=== PATIENT | male | born 1975 | race Caucasian/White ===

== ENCOUNTER 2018-03-31 00:50 | Emergency (ER) | payer OTHER ==
[~2018-03-31] VITALS: Ht 182.9 cm; Wt 86.2 kg
[~2018-03-31 00:50] MED LIST: FLEXERIL PO; IBUPROFEN 800800 MG PO; LAMICTAL PO; NAPROSYN500 MG PO; NORCO 5-325 TA1 EAC1 PO; NORCO 5-325 TA1 EACH PO; TESSALON PERLE100 MG PO; TRAMADOL 50 MG50 MG PO; VALIUM5 MG PO; ZPAK PO
[2018-03-31] MEDS ORDERED: IBUPROFEN 800800 M1 PO (02:11)
[2018-03-31] MEDS ORDERED: NORCO 5-325 TA1 EACH PO (02:11)
[2018-03-31] MEDS ORDERED: KEFLEX500 M1 PO (02:12)
[2018-03-31 02:38] VITALS: BP 117/69
== END 2018-03-31 02:40 | disposition home or self-care (01) ==
LOC: M.ERS 00:50
DX: M79.602 Pain in left arm (principal)

== ENCOUNTER 2019-05-08 06:11 | Emergency (ER) | payer OTHER ==
[~2019-05-08] VITALS: Ht 182.9 cm; Wt 88.6 kg
[~2019-05-08 06:11] MED LIST changes: +IBUPROFEN 800800 M1 PO; +KEFLEX500 M1 PO
[2019-05-08 06:32] LABS: URINE BILIRUBIN NEGATIVE (Negative); URINE BLOOD 1+ (Negative); URINE CLARITY CLEAR; URINE COLOR YELLOW; URINE GLUCOSE-RANDOM NEGATIVE (Negative); URINE KETONES NEGATIVE (Negative); URINE LEUKOCYTES-REFLEX NEGATIVE (Negative); URINE NITRITE-REFLEX NEGATIVE (Negative); URINE PROTEIN NEGATIVE (Negative); URINE SPECIFIC GRAVITY >= 1.030 (1.005-1.030); URINE UROBILINOGEN 0.2 E.U./dl (0.2-1.0)
[2019-05-08 06:40] LABS: BACTERIA-REFLEX 1-9 Few /HPF (None Seen); CASTS None Seen /LPF (None Seen); CRYSTALS None Seen /LPF (None Seen); MUCUS 4-6 Moderate strn/LPF (None Seen); SQUAMOUS 0-3 Few /LPF (0-3); URINE RBC 3-10 Few /HPF (0-2); URINE WBC-REFLEX 0-5 Rare /HPF (0-5)
[2019-05-08 06:46] LABS: ABSOLUTE BASOPHILS 0.1 thou/uL (0.0-0.2); ABSOLUTE EOSINOPHILS 0.2 thou/uL (0.0-0.7); ABSOLUTE LYMPHOCYTES 2.3 thou/uL (0.8-5.3); ABSOLUTE MONOCYTES 0.7 thou/uL (0.0-1.2); ABSOLUTE NEUTROPHILS 6.7 thou/uL (1.6-8.1); BASOPHILS 0.6 %; EOSINOPHILS 2.1 %; HEMOGLOBIN 15.1 gm/dL (14.0-18.0); MCH 28.8 pg (26.0-34.0); MCHC 33.6 g/dL (28.0-37.0); MCV 85.8 fL (80.0-100.0); MONOCYTES 6.6 %; MPV 9.5 fl. (7.2-11.1); NUCLEATED RBCS 0 /100WBC; PLATELET COUNT* 164 thou/uL (150-400); POLYS 67.7 %; RBC 5.25 mil/uL (4.50-6.00); RDW-CV 13.4 % (10.5-14.5)
[2019-05-08 06:59] LABS: ANION GAP 8 mmol/L (7-16); BUN 12 mg/dL (7-18); CALCIUM 8.7 mg/dL (8.5-10.1); CHLORIDE 109 mmol/L (98-107); CO2 28 mmol/L (21-32); GLUCOSE 101 mg/dL (70-99); POTASSIUM 3.8 mmol/L (3.5-5.1); SODIUM 145 mmol/L (136-145)
[2019-05-08 07:04] LABS: ALBUMIN 3.7 g/dL (3.4-5.0); ALKALINE PHOSPHATASE 82 U/L (46-116); LIPASE 142 U/L (73-393); SGOT 13 U/L (15-37); SGPT 21 U/L (30-65); TOTAL BILIRUBIN 0.3 mg/dL (<0.1-1.0); TOTAL PROTEIN 6.4 g/dL (6.4-8.2); TROPONIN-I LEVEL <0.06 ng/mL (<0.06)
[2019-05-08] MEDS ORDERED: ZOFRAN ODT4 MG SUBLING (10:44)
[2019-05-08 10:46] VITALS: BP 101/56
--- NOTE | 2019-05-08 15:55 | EKG ---
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
== END 2019-05-08 10:46 | disposition home or self-care (01) ==
LOC: M.ERS 06:11
PROVIDERS: Personal Emergency Response Attendant
DX: K80.50 Calculus of bile duct without cholangitis or cholecystitis without obstruction (principal)

== ENCOUNTER 2021-08-16 16:15 | Emergency (ER) | payer OTHER ==
[~2021-08-16] VITALS: Ht 182.9 cm; Wt 86.2 kg
[~2021-08-16 16:15] MED LIST changes: +ZOFRAN ODT4 MG SUBLING
[2021-08-16 19:11] LABS: ABSOLUTE BASOPHILS 0.1 thou/uL (0.0-0.2); ABSOLUTE EOSINOPHILS 0.1 thou/uL (0.0-0.7); ABSOLUTE LYMPHOCYTES 1.6 thou/uL (0.8-5.3); ABSOLUTE MONOCYTES 0.6 thou/uL (0.0-1.2); ABSOLUTE NEUTROPHILS 8.4 thou/uL (1.6-8.1); BASOPHILS 0.5 %; EOSINOPHILS 0.6 %; HEMATOCRIT 44.2 % (42.0-52.0); HEMOGLOBIN 15.4 gm/dL (14.0-18.0); LYMPHOCYTES 14.8 %; MCH 29.3 pg (26.0-34.0); MCHC 34.8 g/dL (28.0-37.0); MCV 84.3 fL (80.0-100.0); MONOCYTES 5.6 %; MPV 9.1 fl. (7.2-11.1); NUCLEATED RBCS 0 /100WBC; PLATELET COUNT* 184 thou/uL (150-400); POLYS 78.5 %; RBC 5.24 mil/uL (4.50-6.00); RDW-CV 13.5 % (10.5-14.5); WBC 10.7 thou/uL (4.0-11.0)
[2021-08-16 19:23] LABS: CREATININE 1.2 mg/dL (0.6-1.3); POTASSIUM 3.9 mmol/L (3.5-5.1)
[2021-08-16 19:27] LABS: ALBUMIN 4.4 g/dL (3.4-5.0); TOTAL BILIRUBIN 0.4 mg/dL (<0.1-1.0)
[2021-08-16] MEDS ORDERED: IBUPROFEN 800800 M1 PO (21:38)
[2021-08-16] MEDS ORDERED: ZANAFLEX4 MG PO (21:38)
[2021-08-16 21:43] VITALS: BP 124/68
[2021-08-16] MEDS ORDERED: FLONASE 0.05%50 MCG NARES (21:45)
--- NOTE | 2021-08-17 11:45 | EKG ---
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1975 Requested By: Rajani Ceja Order Number: [id number] MD: Jhonatan Kilpatrick Measurements Intervals [place] Rate: 54 P: 79 KS: 150 QRS: 16 QRSD: 94 T: 57 QT: 467 QTc: 443 Interpretive Statements Sinus rhythm Probable left atrial enlargement Borderline low voltage, extremity leads RSR' in V1 or V2, right VCD or RVH Baseline wander in lead(s) II,III,aVF Compared to ECG 05/08/2019 06:34:50 Right ventricular hypertrophy now present RSR' in V1 or V2 now present Electronically Signed On 08-17-2021 11:45:04 CDT by Jhonatan Kilpatrick [email or web address] <ELECTRONICALLY SIGNED> By: Jhonatan Kilpatrick MD, [facility] 08/17/21 [phone] Jhonatan Kilpatrick MD, [facility] /EPI
== END 2021-08-16 21:44 | disposition home or self-care (01) ==
LOC: M.ERS 16:15
PROVIDERS: Nurse Practitioner Family
DX: H65.92 Unspecified nonsuppurative otitis media, left ear (principal); Z20.822 Contact with and (suspected) exposure to COVID-19; B34.9 Viral infection, unspecified; Z79.899 Other long term (current) drug therapy